=== PATIENT | male | born 1990 | race Caucasian/White ===

== ENCOUNTER → 2023-01-09 23:23 | Outpatient (CLI) | payer BC, SELFPAY ==
[2023-01-09 18:22] LABS: Basophils # 0.1 K/mm3 (0-0.2); Basophils % 0.9 % (0.1-2.0); Eosinophils # 0.2 K/mm3 (0.0-0.4); Eosinophils % 4.6 % (0.1-12.0); Hematocrit 45.5 % (42.0-52.0); Hemoglobin 15.8 g/dL (14.1-18.0); Lymphocytes # 1.9 K/mm3 (0.7-4.5); Lymphocytes % 38.1 % (10-50); Mean Corpuscular HGB Conc 34.7 g/dL (31.8-35.4); Mean Corpuscular Hemoglobin 30.9 pg (27.0-31.2); Mean Corpuscular Volume 89.2 fl (80-94); Mean Platelet Volume 7.9 fl (7.4-10.4); Monocytes # 0.3 K/mm3 (0.1-1.0); Monocytes % 5.1 % (1.7-9.3); Neutrophils # 2.6 K/mm3 (1.8-7.8); Neutrophils % 51.2 % (37.0-80.0); Platelet Count 262 K/mm3 (142-424)
[2023-01-09 18:31] LABS: Alanine Aminotransferase 40 U/L (12-78); Albumin Level 4.6 g/dl (3.5-5.0); Albumin/Globulin Ratio 1.7 (1.1-1.8); Alkaline Phosphatase 81 U/L (38-126); Anion Gap 13.2 mEq/L (5-15); Aspartate Amino Transferase 29 U/L (17-59); Bilirubin,Total 0.4 mg/dl (0.2-1.3); Blood Urea Nitrogen 16 mg/dl (9-20); Carbon Dioxide 26 mmol/L (22.0-30.0); Chloride 102 mmol/L (98-107); Chol/HDL Ratio 4.3 (1-3.5); Cholesterol 213 mg/dl (140-200); Estimated Glomerular Filt Rate 99 ml/min (>60); GFR (African American) 120 ML/MIN (>60); Globulin 2.7 g/dL (1.3-3.2); Glucose 104 mg/dl (74-100); HDL Cholesterol 49 mg/dl (40-60); Potassium 4.2 mmoL/L (3.5-5.1); Sodium 137 mmol/L (136-145); Total Protein,Serum 7.3 g/dl (6.3-8.2); Triglycerides 261 mg/dl (30-150); VLDL Cholesterol 52 mg/dL (0-40)
[2023-01-09 18:43] LABS: Direct LDL Cholesterol 117.93 mg/dL (100-129)
[2023-01-09 18:48] LABS: 25-OH Vitamin D, Total 25.3 ng/mL (30-100)
[2023-01-09 19:01] LABS: Thyroid Stimulating Hormone 0.92 uIU/mL (0.465-4.68)
== END ==
PROVIDERS: PCP Nurse Practitioner Family; Visit Provider Nurse Practitioner Family
DX: Z00.00 Encounter for general adult medical examination without abnormal findings (principal); R53.83 Other fatigue; E55.9 Vitamin D deficiency, unspecified
CPT/HCPCS: 80053; 80061; 82306; 84443; 85025

== ENCOUNTER → 2023-05-14 11:54 | Outpatient (CLI) | payer BC, SELFPAY ==
--- NOTE | 2023-05-14 12:00 | XR_ITS ---
FINAL REPORT CLINICAL HISTORY: PAIN, can't raise above shoulder, radiates to elbow FINDINGS: RIGHT SHOULDER SERIES Three views of the right shoulder were obtained. There is no acute fracture or dislocation. The joint spaces are preserved. There is no soft tissue abnormality. IMPRESSION: No acute abnormality. Reviewed, Interpreted and Dictated by Adilene Kincaid MD Transcribed by Sushila Tompkins Authenticated and [facility]
== END ==
PROVIDERS: PCP Internal Medicine Adolescent Medicine; Visit Provider Internal Medicine Adolescent Medicine
DX: M25.511 Pain in right shoulder (principal)
CPT/HCPCS: 73030

== ENCOUNTER 2023-05-27 13:41 | Outpatient (RCR) | payer BC, SELFPAY ==
--- NOTE | 2023-05-27 14:54 | HMH.PTOPEV ---
PT Outpatient Evaluation Rehab PT Outpatient Evaluation Start: 05/27/23 13:48 Freq: Status: Active Protocol: Document 05/27/23 13:48 EV (Rec: 05/27/23 14:54 EV [id number]) E-signed By Rozina Prince, PT Outpatient Therapy Subjective History Subjective History Pt is a 33 y/o male who reports chronic intermittent right shoulder pain with recent exacerbation while moving a gun safe down a staircase about a month ago. Pt denies hearing a pop but reports anterior shoulder soreness since. Pt reports he has a sharp pain with shoulder elevation and intermittent tingling of the elbow and ring /middle finger with repetitive activities. Pt denies neck pain. Pt had a right shoulder xray on 05/14/23 without significant findings. Pt reports pain is aggravated when lifting his arm out to the side, behind him,and drinking a cup of coffee. Pt reports pain will also wake him up at night if he rolls onto the right shoulder. Pt reports he is pretty active and would like to return to playing golf and fishing. Pt denies other cormorbidities to report. R handed Occupation: [employer] Complaint Pain,Catches/Locks Symptom Type Ache,Sharp,Tingling Symptoms Relieved By Rest/Positioning,Ice Symptoms Aggravated By Physical Activity Prior Functional Limitations None Current Functional Limitations Reaching,Lifting,Sleeping, Recreation Activity Symptom Description Constant but Variable Level of pain today (0-10) 2 Pain scale - at its best (0-10) 2 Pain scale - at its worst (0-10) 6 Shoulder/Elbow Eval Shoulder Objective Measurements Palpation Tenderness tenderness shoulder exam standard right tenderness over the SA bursa shoulder right exam standard Shoulder Palpation Findings Tenderness Shoulder Palpation Overall Comment AC joint, greater tuberosity, supraspinatus
== END 2023-05-27 15:00 | disposition home or self-care (01) ==
LOC: PT 13:41
PROVIDERS: PCP Internal Medicine Adolescent Medicine; Visit Provider Internal Medicine Adolescent Medicine
DX: M25.511 Pain in right shoulder (principal)
CPT/HCPCS: 97163

== ENCOUNTER 2023-07-07 11:13 | Emergency (ER) | payer BC, SELFPAY ==
[2023-07-07 11:20] VITALS: BP 124/77; PULSE 74; RESP 18; TEMP 36.7; O2SAT 97; BMI 25.0
--- NOTE | 2023-07-07 11:28 | EXP.UTC ---
Discharge Plan Disposition Patient Disposition: Home, Self-Care Condition: Good Prescriptions Prescriptions: New azithromycin [Zithromax] 250 mg tablet 250 mg PO UD DOSE PK Qty: 6 0RF Rx Instructions: Take two (2) tablets today, then one (1) tablet days #2 thru #5 methylprednisolone 4 mg Tablets,Dose Pack 4 mg PO DIRECTED Qty: 21 0RF uylrawroiubmwmu-fbkknpctw-OJ [Bromfed DM] 2-30-10 mg/5 mL Syrup 5 ml PO Q6H PRN (Reason: Cough) Qty: 240 0RF No Action famotidine 20 mg tablet 20 mg PO DAILY Referrals Follow up/Referrals: Iglesia Montano MD [Primary Care Provider] - See instructions Activity Restrictions/Add. Instructions Additional Instructions/Restrictions: Drink plenty of fluids. Take tylenol or ibuprofen for pain or fever. Take the medications as directed. Follow up with your regular doctor. GO TO THE ER FOR ANY WORSENING SYMPTOMS Clinical Impressions Clinical Impression: Sinusitis Instructions Patient Instructions: Sinusitis, DI for Sinusitis Discharge ED Provider: Antonio Alcantar [facility] General Stated complaint: congestion Time Seen by Provider: 07/07/23 11:25 History of Present Illness Provider Complaint: He states that he has had sinus congestion and sore throat for the past 1 week. Related Data Home Medications Medication Instructions Recorded Confirmed famotidine 20 mg tablet 20 mg PO DAILY gerd 07/07/23 07/07/23 Previous Rx's Medication Instructions Recorded azithromycin 250 mg tablet 250 mg PO UD DOSE PK #6 tabs 07/07/23 (Zithromax) clyfltfxajbptcv-vxleouzzxuhfnbe-XM 5 ml PO Q6H PRN Cough #240 mL 07/07/23 2 mg-30 mg-10 mg/5 mL oral syrup (Bromfed DM) methylprednisolone 4 mg tablets in 4 mg PO DIRECTED #21 tabs 07/07/23 a dose pack Allergies Allergy/AdvReac Type Severity Reaction Status Date / Time No Known Allergies Allergy Verified 07/07/23 11:40 [facility] Disclaimer: The information contained in this section may have been updated after the patient was seen, as this information can be updated by other users. Social History Smoking Status: Never smoker alcohol intake: current substance use type: denies use current occupational status: employed Travel in the last 8 weeks: None household members: spouse housing: house marital status: education level: college service: No ROS Obtained: Yes All systems reviewed & no additional complaints except as documented Constitutional Constitutional: Reports poor appetite Eyes Eyes: Reports system reviewed and no additional complaints, except as documented ENT Ears, Nose, Mouth, and Throat: Reports as per HPI Cardiovascular Cardiovascular: Reports system reviewed and no additional complaints, except as documented and Denies chest pain Respiratory Respiratory: Denies shortness of breath, Denies chest congestion, Reports cough, Denies stridor and Denies wheezing Gastrointestinal Gastrointestingal: Reports system reviewed and no additional complaints, except as documented; Denies abdominal pain, diarrhea or vomiting Musculoskeletal Musculoskeletal: Reports system reviewed and no additional complaints, except as documented and Denies arthralgias Integumentary/Breasts Skin/Breast: Reports system reviewed and no additional complaints, except as documented and Denies rash Neurologic Neurologic: Denies paresthesias Allergic/Immunologic Allergic/Immunologic: Denies wheezing Physical Exam General General appearance: alert and in no apparent distress Eye Eye exam: Present normal appearance, PERRL and EOMI ENT ENT exam: Present mucous membranes moist and normal external ear exam Expanded ENT Exam External ear exam: Present normal external inspection TM/Canal exam: Bilateral TM: erythema and bulging Nose exam: Absent sinus tenderness Nasal speculum exam: Bilateral: normal Mouth exam: Present
[2023-07-07 12:34] VITALS: BP 124/77; PULSE 74; RESP 18; TEMP 36.7; O2SAT 97
== END 2023-07-07 12:34 | disposition home or self-care (01) ==
PROVIDERS: Emergency Provider Nurse Practitioner Family; PCP Internal Medicine Adolescent Medicine
DX: J01.90 Acute sinusitis, unspecified (principal)
CPT/HCPCS: 99204; 99212; G0463

== ENCOUNTER 2024-09-27 08:42 | Outpatient (CLI) | payer OTHER, SELFPAY ==
--- NOTE | 2024-09-27 08:49 | FL_ITS ---
FINAL REPORT CLINICAL HISTORY: CHRONIC COUGH 2038.63 DAP 2.29 FLUORO FINDINGS: UPPER GI EXAM HISTORY: Chronic cough. PROCEDURE: The patient ingested barium. Effervescent crystals were also administered. Spot and overhead films were obtained. FINDINGS:No esophageal stricture is identified. There is irregular mucosa of the esophagus consistent with esophagitis. A 13 mm barium tablet passes through the esophagus and into the stomach without delay. There is no gastroesophageal reflux. Peristalsis is normal. The rugal fold pattern of the stomach is normal. The duodenal bulb is normal. Fluoro time: 2 minutes 29 seconds DAP: 2038.63 uGy.m2 Radiation exposure in Reference air Kerma: Not provided. mGy. IMPRESSION: Irregular mucosa of the esophagus consistent with esophagitis. Consider EGD. Films reviewed , interpreted and dictated by Dr. Lopez. Transcribed by Tor Zimmerman PA-C. Reviewed, Interpreted and Dictated by Sergio Lopez III, MD Transcribed by JONI Marrero Authenticated and [facility]
[2024-09-27] MEDS: BARIUM SULFATE (E-Z-HD 340GM);135ML BOTTLE 135 ML PO (09:35)
[2024-09-27] MEDS: BARIUM SULFATE(LIQUID E-Z-PAQUE);355ML BOTTLE 355 ML PO (09:35)
[2024-09-27] MEDS: E-Z-GASII EFFERVESCENT GRANULES;1PK 1 EACH PO (09:36)
== END 2024-09-27 23:59 | disposition home or self-care (01) ==
LOC: RAD 08:43
PROVIDERS: PCP Internal Medicine Adolescent Medicine; Visit Provider Nurse Practitioner Family
DX: R05.3 Chronic cough (principal); R09.A2 Foreign body sensation, throat
CPT/HCPCS: 74246

== ENCOUNTER 2024-11-10 08:47 | Day surgery (SDC) | payer BC, SELFPAY ==
[2024-11-08 15:05] VITALS: BMI 24.9
[2024-11-10] MEDS: LACTATED RINGERS 1000ML 1,000 ML 50 ML IV (09:38)
[2024-11-10 09:41] VITALS: BP 138/81; PULSE 70; RESP 18; TEMP 36.2; O2SAT 96
--- NOTE | 2024-11-10 10:57 | P.PNANES_ITS ---
[facility] Disclaimer: The information contained in this section may have been updated after the patient was seen, as this information can be updated by other users. Medical History Family history of Lima esophagus Family history of esophageal cancer Seasonal allergic rhinitis Chronic GERD Surgical History S/P anterior cruciate ligament surgery Family History Family/Other No significant family history Other Family history of Lima esophagus Family history of esophageal cancer Social History Smoking Status: Never smoker alcohol intake: current alcohol intake frequency: holidays/special occasions only substance use type: denies use current occupational status: employed Travel in the last 8 weeks: None household members: spouse housing: house marital status: education level: college service: No Have you lived/traveled outside [place] in past 30 days?: No Contact w/someone who lives/traveled outside US past 30 days?: No Exposure to someone with infectious disease in past 14 days?: No Do you have a fever (greater than 100.4 F or 38 C)?: No Have you tested positive for COVID-19: No Exposed to someone with COVID-19 in past 14 days?: No Do you have a sore throat?: No Do you have a cough?: No Do you have any weakness?: No Do you have any diarrhea?: No Are you experiencing any unusual bleeding?: No Do you have any muscle aches/pain?: No Do you have any abdominal pain?: No Are you experiencing loss of taste or smell?: No [facility] Anesthesia Checklist Patient Identification Patient Identification: Arm Band and Verbal (Name & ) Structural Data Admitted From: Home Planned Operative Procedure/s: EGD Consent for Planned Operative Procedure(s) Verified: Yes Verified Documents: Surgical Consent and History and Physical NPO Status Verified Time NPO: 19:00 Chart Verification Results Verified: CBC and BMP Additional verifications Patient : No Anesthesia Reactions: No Cardiovascular Assessment Heart Sounds: S1 & S2 Pulse Rhythm: Irregular Peripheral Edema: No Airway Assessment Mallampati Score:: Class I C-Spine Mobility Assessed: Yes TMJ Mobility Assessed: Yes Dentition: Good Dentition Neurological Assessment Level of Consciousness: Awake, Alert, Appropriate and Follows Commands Hx Seizures: No Numbness or tingling in extremities: No Anesthesia Plan Anesthesia Risk discussed: Yes Anesthesia Plan: Verified ASA Class: II Anesthesia Type: MAC
--- NOTE | 2024-11-10 11:01 | P.HP_ITS ---
History of Present Illness *Admission Date: 11/10/24 *Reason for visit:: Reflux with globus sensation/dysphagia and cough *History of present illness: Mr. Stevenson is a 34-year-old gentleman who is here for diagnostic upper endoscopy secondary to heartburn, reflux, globus sensation and dysphagia. He does get coughing when bending over. The examination is deemed medically necessary for diagnostic upper endoscopy. The patient has been seen, interviewed and examined prior to the procedure by both myself and the anesthesia provider. [facility] Disclaimer: The information contained in this section may have been updated after the patient was seen, as this information can be updated by other users. Medical History (Updated 11/10/24 @ 11:03 by Piter Sanders II, MD) Family history of Lima esophagus Family history of esophageal cancer Seasonal allergic rhinitis Chronic GERD Surgical History (Updated 11/10/24 @ 10:59 by Janee Cohen RN) No significant past surgical history Family History Family/Other No significant family history Other Family history of Lima esophagus Family history of esophageal cancer Social History Smoking Status: Never smoker alcohol intake: current alcohol intake frequency: holidays/special occasions only substance use type: denies use current occupational status: employed Travel in the last 8 weeks: None household members: spouse housing: house marital status: education level: college service: No Have you lived/traveled outside [place] in past 30 days?: No Contact w/someone who lives/traveled outside US past 30 days?: No Exposure to someone with infectious disease in past 14 days?: No Do you have a fever (greater than 100.4 F or 38 C)?: No Have you tested positive for COVID-19: No Exposed to someone with COVID-19 in past 14 days?: No Do you have a sore throat?: No Do you have a cough?: No Do you have any weakness?: No Do you have any diarrhea?: No Are you experiencing any unusual bleeding?: No Do you have any muscle aches/pain?: No Do you have any abdominal pain?: No Are you experiencing loss of taste or smell?: No Other Medical History Have you received the Pneumonia Vaccine: No Review of Systems Review of Systems Review of systems (narrative): Negative *Cardiovascular Comments: Negative *Gastrointestinal Comments: Negative *Genitourinary Comments: Negative *Musculoskeletal Comments: Negative *Neurologic Comments: Negative Meds Home Medications and Allergies Home Medications ?Medication ?Instructions ?Recorded ?Confirmed ?Type No Known Home Medications 11/08/24 11/08/24 History New Prescriptions to Start Prescriptions: Allergies Allergy/AdvReac Type Severity Reaction Status Date / Time No Known Allergies Allergy Verified 10/06/24 11:24 Exam Data for Last 24 hours Vital signs and Labs for Last 24 Hours: Temp Pulse Resp BP Pulse Ox O2 Del Method 97.2 F L 70 18 138/81 96 Room Air 11/10/24 09:41 11/10/24 09:41 11/10/24 09:41 11/10/24 09:41 11/10/24 09:41 11/10/24 09:41 I & O for Last 24 hours: Intake & Output 11/07/24 11/08/24 11/09/24 11/10/24 23:59 23:59 23:59 23:59 Weight 184 lb *Routine HEENT Exam Head: Present normocephalic Eye: Present EOMI and PERRL ENT: Present mucous membranes moist *Routine Neck Exam Neck: Present supple *Routine Respiratory Exam Respiratory: Present CTA bilaterally *Routine Cardiovascular Exam Cardiovascular: Present RRR *Routine Abdominal Exam Abdominal: Present soft and normoactive bowel sounds; Absent tenderness *Routine Rectal Exam Rectal:: deferred *Routine Genitalia Exam Genitalia:: deferred *Routine Extremities Exam Extremities: Absent cyanosis, clubbing or edema *Routine Skin Exam Skin: Present warm; Absent rash *Routine Neurological Exam Neurological: Present alert and oriented X3 Assessment and Plan *Assessment and plan (1) Globus sensation: Status: Acute Category: Medical Code(s): R09.A2 - Foreign body sensation, throat (2) Dysphagia: Status: Acute Category: Medical Code(s): R13.10 - Dysphagia, unspecified (3) Chronic GERD: Status: Acute Category: Medical Code(s): K21.9 - Gastro-esophageal reflux disease without esophagitis (4) Family history of Lima's esophagus: Status: Acute Category: Medical Code(s): Z83.79 - Family history of other diseases of the digestive system (5) Family history of esophageal cancer: Status: Acute Category: Medical Code(s): Z80.0 - Family history of malignant neoplasm of digestive organs (6) Cough: Status: Acute Category: Medical Code(s): R05.9 - Cough, unspecified Plan A/P: 1. GERD with heartburn, globus and dysphagia. He does have a family history of Lima's and esophageal cancer is the preprocedural diagnosis. The patient will be anesthetized/sedated using MAC sedation. The patient has been seen and examined. Cardiac and lung assessment prior to the examination is stable. Proceed with planned diagnostic EGD
--- NOTE | 2024-11-10 11:04 | P.PCN_ITS ---
[facility] Procedure Note Date: 11/10/24 Time: 11:15 Procedure Note:: Upper Endoscopy Procedure Report: Esophagogastroduodenoscopy with cold biopsies and TTS balloon dilation Endoscopost: Piter Sandres II, MD Referring Physician: Iglesia Montano M.D. Date of Procedure: November 10, 2024 Equipment: Olympus GIF 190 standard upper endoscope Sedation: MAC sedation Indications: Mr. Stevenson is a 34-year-old gentleman with heartburn and reflux. He has had a chronic cough with frequent clearance of the throat, globus sensation and intermittent dysphagia. If he bends over, he will develop coughing. When he swings a golf club, he has coughing. He had formerly been on famotidine but stopped this when he discontinued [place] tobacco. He does get some nocturnal reflux with intermittent heartburn. Sometimes meat and steaks go down slowly. He did have an upper GI series that showed some irregular mucosa of the esophagus and possibly esophagitis. Upper endoscopy was recommended. His maternal grandfather was diagnosed with esophageal cancer in his 70s or 80s. His mother has a history of Lima's esophagus. 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 Procedure: Prior to the procedure, a history and physical exam was performed, and patient's medications and allergies were reviewed. The risks, benefits and alternatives of the sedation and procedure were discussed with the patient. All questions were answered and informed consent was obtained. The patient was brought to the procedure room. Patient identification and proposed procedure were verified by the physician and the nurse. The patient was placed in a left lateral decubitus position and the scope was passed under direct vision. Throughout the procedure, the patient's blood pressure, pulse, and oxygen saturations were monitored continuously. The upper GI endoscopy was accomplished without difficulty. The patient tolerated the procedure well. Findings: The scope was passed directly into the upper esophagus and advanced to the third portion of the duodenum. The post bulbar duodenum and duodenal bulb were normal with normal mucosa and conniventes. The scope was withdrawn through a normal duodenal bulb and pylorus into the stomach. There was some very mild linear reactive gastropathy of the antrum. The remainder of the body and fundus of the stomach were normal. Biopsies were taken from the antrum. Upon retroflexion there was a very small 1 to 2 cm sliding hiatal hernia. The scope was then withdrawn into the esophagus. There was no evidence of reflux esophagitis or Lima's. There was no esophageal stricturing. There was distal esophageal mild corrugation and furrowing and biopsies were taken from both the distal and proximal esophagus to rule out eosinophilic esophagitis. Bi opsies were also taken from the GE junction to rule out intestinal metaplasia (not Lima's). There was no proximal esophageal inlet patch. The entire esophagus was dilated to 60 [place]/20 mm with a TTS hydrostatic balloon with minimal resistance. Impression: 1. Nonerosive GERD with moderate esophageal dysmotility and small sliding 1 to 2 cm hiatal hernia 2. Very mild linear reactive gastropathy of antrum Plan: I will follow-up the biopsies. I would recommend omeprazole 40 mg daily. 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 I will discuss the findings with the patient and family.
[2024-11-10 11:21] VITALS: BP 113/72; PULSE 95; RESP 16; TEMP 36.4; O2SAT 97
[2024-11-10 11:31] VITALS: BP 114/80; PULSE 74; RESP 16; O2SAT 95
[2024-11-10 11:41] VITALS: BP 126/83; PULSE 67; RESP 16; O2SAT 98
[2024-11-10 11:51] VITALS: BP 119/79; PULSE 67; RESP 16; O2SAT 96
[2024-11-10 12:17] VITALS: BP 120/70; PULSE 70; RESP 16; TEMP 36.4; O2SAT 97
== END 2024-11-10 12:20 | disposition home or self-care (01) ==
PROVIDERS: PCP Internal Medicine Adolescent Medicine; Visit Provider Internal Medicine Gastroenterology
PROC: 0DJ08ZZ Inspection of Upper Intestinal Tract, Via Natural or Artificial Opening Endoscopic (ICD-10-PCS; CPT 43239; principal; 2024-11-10 10:30)
DX: R09.A2 Foreign body sensation, throat (principal); R13.10 Dysphagia, unspecified; K21.9 Gastro-esophageal reflux disease without esophagitis; Z83.79 Family history of other diseases of the digestive system; Z80.0 Family history of malignant neoplasm of digestive organs; R05.9 Cough, unspecified; K44.9 Diaphragmatic hernia without obstruction or gangrene; K31.9 Disease of stomach and duodenum, unspecified
CPT/HCPCS: 43239; 43249; C1726; J2704; J7120